=== PATIENT | female | born 1980 | race Caucasian/White ===

== ENCOUNTER 2022-07-22 06:53 | Inpatient (IN) ==
[2022-07-22 08:00] LABS: ABS Eosinophils 0.2 10^3/ul (0-0.6); ABS Lymphocytes 1.4 10^3/ul (1.0-4.8); ABS Monocytes 0.4 10^3/ul (0-0.8); ABS Neutrophils 4.3 10^3/ul (1.5-7.7); Eosinophil % 3.6 %; Hematocrit 38 % (35-47); Lymphocyte % 21.6 %; Mean Corpuscular HGB Conc 34 g/dL (31-36); Mean Corpuscular Hemoglobin 31 pg (27-31); Mean Corpuscular Volume 90 fL (80-97); Mean Platelet Volume 7.5 fL (7.4-10.4); Platelet Count 284 10^3/uL (150-450); Red Blood Count 4.25 10^6 /uL (3.70-4.87); Red Cell Distribution Width 14 % (10-15); White Blood Count 6.3 10^3/uL (3.5-10.8)
[2022-07-22 08:51] LABS: ALT 19 U/L (7-52); AST 24 U/L (13-39); Acetaminophen < 15 mcg/mL; Albumin 4.3 g/dL (3.2-5.2); Albumin/Globulin Ratio 1.5 (1-3); Alcohol, S < 13 mg/dL (<13); Alkaline Phosphatase 61 U/L (35-149); Anion Gap 11 mmol/L (2-11); Blood Urea Nitrogen 11 mg/dL (6-24); CO2 Carbon Dioxide 24 mmol/L (22-32); Calcium 9.4 mg/dL (8.6-10.3); Chloride 105 mmol/L (101-111); Globulin 2.9 g/dL (2-4); Glucose 105 mg/dL (70-100); Potassium 4.2 mmol/L (3.5-5.0); Salicylate < 2.50 mg/dL (<30); Sodium 140 mmol/L (135-145); Total Protein 7.2 g/dL (6.4-8.9); eGFR CKD-EPI 92.3 (>60)
[2022-07-22 09:03] LABS: TSH Ultra Thyroid Stim Horm 0.94 mcIU/mL (0.34-5.60)
[2022-07-22 09:34] LABS: Urine Appearance Clear; Urine Bilirubin Negative (Negative); Urine Blood 1+ (Small) (Negative); Urine Color Yellow; Urine Glucose Negative (Negative); Urine Ketones 1+ (15mg/dL) (Negative); Urine Nitrite Negative (Negative); Urine Protein Negative (Negative); Urine Specific Gravity 1.025 (1.005-1.030); Urine Urobilinogen 1.0 (Negative) (Negative)
[2022-07-22 09:49] LABS: Urine Bacteria Absent (Absent); Urine Red Blood Cell 3+(>10/hpf) (Absent); Urine Squamous Epithelial Cell Present (Absent); Urine White Blood Cell Trace(0-5/hpf) (Absent)
[2022-07-22 10:03] LABS: Urine Benzodiazepine Screen None Detected (None Detect); Urine Cannabinoids Screen None Detected (None Detect); Urine Opiates Screen None Detected (None Detect)
[2022-07-22 18:41] LABS: HCG Pregnancy 6.23 mIU/mL
[2022-07-22] MEDS ORDERED: Al Hydrox/Mg Hydrox/Simet LIQ 30 ML UDC PO PRN (19:33)
[2022-07-22] MEDS ORDERED: Nicotine GUM 4MG FRUIT FLAVOR PO PRN (20:00)
[2022-07-23 08:12] LABS: HDL Cholesterol 60.7 mg/dL
[2022-07-23] MEDS: Nicotine PATCH 21 MG/24 HR PATCH TRANSDERM SCH (08:57)
[2022-07-23] MEDS: Vitamin THERAPEUTIC TAB PO SCH (08:57)
[2022-07-24] MEDS: Vitamin THERAPEUTIC TAB PO SCH (07:38)
[2022-07-24] MEDS: Nicotine PATCH 21 MG/24 HR PATCH TRANSDERM SCH (07:40)
[2022-07-25] MEDS: Vitamin THERAPEUTIC TAB PO SCH (07:28)
[2022-07-25] MEDS: Nicotine PATCH 21 MG/24 HR PATCH TRANSDERM SCH (07:29)
[2022-07-26] MEDS: Vitamin THERAPEUTIC TAB PO SCH (07:48)
[2022-07-26] MEDS: Nicotine PATCH 21 MG/24 HR PATCH TRANSDERM SCH (07:49)
[2022-07-26] MEDS ORDERED: Lithium Carbonate ER 450mg TAB PO SCH (21:00)
[2022-07-27] MEDS: Vitamin THERAPEUTIC TAB PO SCH (07:56)
[2022-07-27] MEDS: Nicotine PATCH 21 MG/24 HR PATCH TRANSDERM SCH (07:56)
[2022-07-28] MEDS: Vitamin THERAPEUTIC TAB PO SCH (07:38)
[2022-07-28] MEDS: Nicotine PATCH 21 MG/24 HR PATCH TRANSDERM SCH (07:59)
[2022-07-29] MEDS: Nicotine PATCH 21 MG/24 HR PATCH TRANSDERM SCH (07:18)
[2022-07-29] MEDS: Vitamin THERAPEUTIC TAB PO SCH (07:18)
[2022-07-30] MEDS: Vitamin THERAPEUTIC TAB PO SCH (08:27)
[2022-07-30] MEDS: Nicotine PATCH 21 MG/24 HR PATCH TRANSDERM SCH (10:11)
[2022-07-31] MEDS: Vitamin THERAPEUTIC TAB PO SCH (09:03)
[2022-08-01] MEDS: Vitamin THERAPEUTIC TAB PO SCH (07:50)
[2022-08-02] MEDS: Vitamin THERAPEUTIC TAB PO SCH (07:57)
[2022-08-03] MEDS: Vitamin THERAPEUTIC TAB PO SCH (07:39)
[2022-08-04] MEDS: Vitamin THERAPEUTIC TAB PO SCH (08:39)
[2022-08-05] MEDS: Vitamin THERAPEUTIC TAB PO SCH (09:24)
[2022-08-06] MEDS: Vitamin THERAPEUTIC TAB PO SCH (09:31)
== END 2022-08-06 10:00 | disposition home or self-care (01) | DRG 753 ==
LOC: ED 06:53 → BSU 18:24
PROVIDERS: ADMIT Psychiatry & Neurology Psychiatry; ATTEND Psychiatry & Neurology Psychiatry

== ENCOUNTER 2023-11-26 13:55 | Inpatient (IN) ==
[2023-11-26 15:52] LABS: ABS Eosinophils 0.1 10^3/uL (0.0-0.5); ABS Lymphocytes 1.9 10^3/uL (1.0-4.8); ABS Monocytes 0.6 10^3/uL (0.0-0.9); ABS Neutrophils 4.4 10^3/uL (1.5-7.6); ABS Nucleated RBC 0.02 10^3/ul; Eosinophil % 1.1 %; Hematocrit 45.6 % (35-45); Hemoglobin 15.9 g/dL (11.5-14.3); Lymphocyte % 27.4 %; Mean Corpuscular Hemoglobin 30.5 pg (27-33); Mean Corpuscular Hgb Conc 34.8 g/dL (31-36); Mean Corpuscular Volume 87.9 fL (80-97); Mean Platelet Volume 7.8 fL (7.5-11.2); Nucleated Red Blood Cells % 0.3 %/100WBC (0.0-0.8); Platelet Count 390 10^3/uL (150-450); Red Blood Count 5.19 10^6/uL (3.63-4.92); White Blood Count 6.9 10^3/uL (3.8-11.8)
[2023-11-26 16:12] LABS: Urine Appearance Clear; Urine Bilirubin Negative (Negative); Urine Blood 1+ (Negative); Urine Color Straw; Urine Glucose Negative (Negative); Urine Ketones Negative (Negative); Urine Nitrite Negative (Negative); Urine Protein Negative (Negative); Urine Specific Gravity 1.005 (1.002-1.030); Urine Urobilinogen Negative (Negative)
[2023-11-26 16:13] LABS: ALT 17 U/L (7-52); AST 17 U/L (13-39); Albumin 4.9 g/dL (3.2-5.2); Albumin/Globulin Ratio 1.4 (1-3); Alkaline Phosphatase 74 U/L (35-149); Anion Gap 7 mmol/L (2-16); Blood Urea Nitrogen 11 mg/dL (6-24); C Reactive Protein 1.31 mg/L (<8.01); CO2 Carbon Dioxide 25 mmol/L (22-32); Calcium 10.5 mg/dL (8.6-10.3); Chloride 106 mmol/L (101-111); Creatinine, Serum 0.98 mg/dL (0.51-0.95); Globulin 3.6 g/dL (2-4); Glucose 90 mg/dL (70-100); Lipase 77 U/L (11.0-82.0); Potassium 3.8 mmol/L (3.5-5.0); Sodium 138 mmol/L (135-145); Total Bilirubin 0.5 mg/dL (0.2-1.0); Total Protein 8.5 g/dL (6.4-8.9)
[2023-11-26 16:19] LABS: HCG Pregnancy 0.74 mIU/mL
[2023-11-26 16:29] LABS: Urine Bacteria 1+ (Absent); Urine Red Blood Cell Trace(0-2/hpf) (Absent); Urine Squamous Epithelial Cell Present (Absent); Urine White Blood Cell Trace(0-5/hpf) (Absent)
[2023-11-26 16:34] LABS: Urine Benzodiazepine Screen None Detected (None Detect); Urine Cannabinoids Screen None Detected (None Detect); Urine Opiates Screen None Detected (None Detect)
[2023-11-26 16:43] LABS: Acetaminophen < 15 mcg/mL; Alcohol, S < 13 mg/dL (<13); Salicylate < 2.50 mg/dL (<30)
[2023-11-26 16:56] LABS: TSH Ultra Thyroid Stim Horm 0.73 mcIU/mL (0.34-5.60)
[2023-11-26] MEDS ORDERED: Iohexol 300 (CONTRAST) 10 ML SDV IV ONE (18:11)
[2023-11-26 20:37] LABS: Lithium < 0.16 mmol/L (0.6-1.2)
[2023-11-26] MEDS ORDERED: Sulfamethox/Trimethoprim DS TAB 800/160 mg PO ONE (20:38)
[2023-11-26] MEDS ORDERED: Al Hydrox/Mg Hydrox/Simet LIQ 30 ML UDC PO ONE (20:42)
[2023-11-26] MEDS ORDERED: Al Hydrox/Mg Hydrox/Simet LIQ 30 ML UDC PO PRN (22:09)
[2023-11-26] MEDS: Lithium Carbonate ER 450mg TAB PO SCH (22:51)
[2023-11-27] MEDS: Vitamin THERAPEUTIC TAB PO SCH (08:45)
[2023-11-27] MEDS: Senna TAB 8.6 mg TAB PO SCH (11:15)
[2023-11-27] MEDS: Lithium Carbonate ER 450mg TAB PO SCH (20:31)
[2023-11-27] MEDS: Triamcinolone 0.025% OINT 15 GM TUBE TOPICAL SCH (20:33)
[2023-11-27] MEDS ORDERED: Polyethylene Glycol 3350 17 GM PACKET PO ONE (23:00)
[2023-11-28] MEDS: Senna TAB 8.6 mg TAB PO SCH (08:58)
[2023-11-28] MEDS: Vitamin THERAPEUTIC TAB PO SCH (08:58)
[2023-11-28] MEDS: Triamcinolone 0.025% OINT 15 GM TUBE TOPICAL SCH ×2 (08:59→20:28)
[2023-11-28] MEDS: Saline NASAL SPRAY 0.65% BTL LEFT NARE SCH ×2 (16:41→20:27)
[2023-11-28] MEDS: Lithium Carbonate ER 450mg TAB PO SCH (20:26)
[2023-11-29] MEDS: Saline NASAL SPRAY 0.65% BTL LEFT NARE SCH ×2 (08:40→20:19)
[2023-11-29] MEDS: Vitamin THERAPEUTIC TAB PO SCH (08:40)
[2023-11-29] MEDS: Senna TAB 8.6 mg TAB PO SCH (08:40)
[2023-11-29] MEDS: Triamcinolone 0.025% OINT 15 GM TUBE TOPICAL SCH ×2 (08:42→20:19)
[2023-11-29] MEDS: Lithium Carbonate ER 450mg TAB PO SCH (20:19)
[2023-11-30] MEDS: Triamcinolone 0.025% OINT 15 GM TUBE TOPICAL SCH ×2 (08:25→20:36)
[2023-11-30] MEDS: Senna TAB 8.6 mg TAB PO SCH (08:25)
[2023-11-30] MEDS: Vitamin THERAPEUTIC TAB PO SCH (08:25)
[2023-11-30] MEDS: Saline NASAL SPRAY 0.65% BTL LEFT NARE SCH ×2 (08:25→20:38)
[2023-11-30 20:13] LABS: Hematocrit 42.5 % (35-45); Hemoglobin 14.4 g/dL (11.5-14.3); Mean Corpuscular Hemoglobin 30.3 pg (27-33); Mean Corpuscular Hgb Conc 33.9 g/dL (31-36); Mean Corpuscular Volume 89.3 fL (80-97); Mean Platelet Volume 8.1 fL (7.5-11.2); Platelet Count 355 10^3/uL (150-450); Red Blood Count 4.76 10^6/uL (3.63-4.92); Red Cell Distribution Width 14.1 % (12-17); White Blood Count 8.7 10^3/uL (3.8-11.8)
[2023-11-30] MEDS: Lithium Carbonate ER 450mg TAB PO SCH (20:34)
[2023-12-01] MEDS: Saline NASAL SPRAY 0.65% BTL LEFT NARE SCH ×2 (08:22→19:52)
[2023-12-01] MEDS: Triamcinolone 0.025% OINT 15 GM TUBE TOPICAL SCH ×2 (08:23→19:53)
[2023-12-01] MEDS: Senna TAB 8.6 mg TAB PO SCH (08:24)
[2023-12-01] MEDS: Vitamin THERAPEUTIC TAB PO SCH (08:24)
[2023-12-01] MEDS: Lithium Carbonate ER 450mg TAB PO SCH (19:51)
[2023-12-01 20:37] LABS: Albumin 4.4 g/dL (3.2-5.2); Albumin/Globulin Ratio 1.3 (1-3); Calcium 10.5 mg/dL (8.6-10.3); Creatinine, Serum 0.97 mg/dL (0.51-0.95); Globulin 3.3 g/dL (2-4); Potassium 4.1 mmol/L (3.5-5.0); Total Bilirubin 0.3 mg/dL (0.2-1.0); Total Protein 7.7 g/dL (6.4-8.9); eGFR CKD-EPI 73.9 (>60)
[2023-12-01 21:09] LABS: Lithium 0.66 mmol/L (0.6-1.2)
[2023-12-02] MEDS: Vitamin THERAPEUTIC TAB PO SCH (08:26)
[2023-12-02] MEDS: Senna TAB 8.6 mg TAB PO SCH (08:26)
[2023-12-02] MEDS: Saline NASAL SPRAY 0.65% BTL LEFT NARE SCH ×2 (08:26→20:35)
[2023-12-02] MEDS: Triamcinolone 0.025% OINT 15 GM TUBE TOPICAL SCH ×2 (08:27→20:35)
[2023-12-02] MEDS: Lithium Carbonate ER 450mg TAB PO SCH (20:33)
[2023-12-03] MEDS: Saline NASAL SPRAY 0.65% BTL LEFT NARE SCH (08:22)
[2023-12-03] MEDS: Triamcinolone 0.025% OINT 15 GM TUBE TOPICAL SCH (08:22)
[2023-12-03] MEDS: Senna TAB 8.6 mg TAB PO SCH (08:22)
[2023-12-03] MEDS: Vitamin THERAPEUTIC TAB PO SCH (08:23)
[2023-12-03 08:38] VITALS: BP 116/84
== END 2023-12-03 13:42 | disposition home or self-care (01) | DRG 753 ==
LOC: ED 13:55 → BSU 22:09 → EDHOLD 22:09 → ED 22:19 → BSU 22:28
PROVIDERS: ADMIT Psychiatry & Neurology Psychiatry; ATTEND Psychiatry & Neurology Psychiatry